=== PATIENT | female | born 1995 | race Caucasian/White ===

== ENCOUNTER 2023-11-14 05:18 | Emergency (ER) | payer MEDICAID ==
[~2023-11-14] VITALS: Ht 188 cm; Wt 74.6 kg
[2023-11-14 06:18] VITALS: BP 131/84; PULSE 96; RESP 16; TEMP 98; O2SAT 97
[2023-11-14] MEDS ORDERED: DICL1GEL59 EX (06:34)
[2023-11-14] MEDS ORDERED: MELO7.5T7 PO (06:34)
[2023-11-14] MEDS: KETOROLAC TROMETH 30 MG/ML 1ML VIAL IM ONE (06:42)
== END 2023-11-14 07:05 | disposition home or self-care (01) ==
LOC: ER 05:18
DX: M54.2 Cervicalgia (principal); F17.210 Nicotine dependence, cigarettes, uncomplicated; Z79.899 Other long term (current) drug therapy; X50.3XXA Overexertion from repetitive movements, initial encounter; Y93.89 Activity, other specified; Y92.89 Other specified places as the place of occurrence of the external cause; Y99.8 Other external cause status
CPT/HCPCS: 96372; 99283; J1885

== ENCOUNTER 2024-11-15 10:55 | Emergency (ER) | payer MEDICAID ==
[~2024-11-15] VITALS: Ht 188 cm; Wt 73.1 kg
[~2024-11-15 10:55] MED LIST: DICL1GEL59 EX; MELO7.5T7 PO
[2024-11-15 12:19] LABS: Basophils # (auto) 0.1 10 ^3/uL (0-0.2); Basophils % (auto) 0.7 % (0.0-2.0); Eosinophils # (auto) 0.1 10 ^3/uL (0-0.8); Hematocrit 40.2 % (36.0-46.0); Hemoglobin 13.9 g/dL (12.2-16.2); Lymphocytes # (auto) 1.8 10 ^3/uL (0.4-5.4); Lymphocytes % (auto) 20.1 % (10.0-50.0); Mean Corpuscular Hemoglobin 31.6 pg (28.0-32.0); Mean Corpuscular Hgb Conc. 34.4 g/dL (32.0-36.0); Mean Corpuscular Volume 91.8 fL (80.0-100.0); Monocytes # (auto) 0.6 10 ^3/uL (0-1.3); Monocytes % (auto) 7.3 % (0.0-12.0); Neutrophils # (auto) 6.3 10 ^3/uL (1.6-8.6); Neutrophils % (auto) 70.9 % (37.0-80.0); Nucleated Red Blood Cells % 0.1 %; Platelet Count (auto) 163 10^3/uL (140-450); Red Blood Cells 4.38 10^6/uL (4.0-5.20); White Blood Cell 8.8 10^3/uL (4.4-10.8)
[2024-11-15 12:28] LABS: Chloride 105 mmol/L (98-107); Potassium 3.9 mmol/L (3.5-5.1); Sodium 137 mmol/L (136-145)
[2024-11-15 12:29] LABS: Anion Gap 7 (5-15); Carbon Dioxide 25 mmol/L (20-31)
--- NOTE | 2024-11-15 12:29 | ED.PDOC ---
[facility] HPI Comments 29y F who presents to the ED for chief complaint of vaginal spotting. Pt states she is currently 3 months , LMP 08/25/24, , and states she has been having spotting since last night PM. Pt states she got into argument with daughter last night PM and states she lifted something heavy and states afterwards, while using restroom, she saw blood while wiping. Pt states she got worried and states she wanted to make sure "my baby has a heartbeat" and came to the ED today for further evaluation. Pt now in the ED, otherwise denies any associated cramping, nausea,vomiting, fever, cough, chills, dysuria, chest pain, or shortness of breath. Pt has noted stable vitals in the ED, with noted temp of 98.9F, heart rate of 95, RR 18, BP 133/80 and 02 sat of 98% on room air. Pt otherwise deneis any other symptoms at this time. Chief Complaint: Vaginal Bleed Time Seen by MD: 12:27 Reviewed Notes: Medications Allergies: Coded Allergies: NO KNOWN ALLERGIES (Unverified , 05/02/13) Home Meds Active Scripts Diclofenac Sodium (Topical) (Voltaren Arthritis Pain) 1 % Gel, 1 % EX QIDPRN for 60 Days, #60 GRAMS 0 Refills Prov:CATRACHITA CARTAGENA SOLAR PANEL INSTALLER 11/14/23 Meloxicam (Meloxicam) 7.5 Mg Tab, 1 TAB PO DAILYP PRN for 30 Days, #30 TAB 0 Refills Prov:CATRACHITA CARTAGENA SOLAR PANEL INSTALLER 11/14/23 Information Source: Patient Mode of Arrival: Ambulatory Brought in by: self Past Medical History PAST MEDICAL HISTORY: Denies Surgical History: Denies all surgeries NURSING STAFFING COORDINATOR History: Other (Current approximate 12 week , G2, P 1) Family History Family History: Reviewed,noncontributory to illness, Unknown Social History Smoker: Cigarettes, Greater Than 1 Pack/Day Alcohol: Occasionally Drugs: Denies Drug Use Lives In: Home Constitutional: denies: chills, diaphoresis, fatigue, fever, malaise, sweats, weakness, others EENTM: denies: blurred vision, double vision, ear bleeding, ear discharge, ear drainage, ear pain, ear ringing, eye pain, eye redness, hearing loss, mouth pain, mouth swelling, nasal discharge, nose bleeding, nose congestion, nose pain, photophobia, tearing, throat pain, throat swelling, voice changes, others Respiratory: denies: cough, hemoptysis, orthopnea, SOB at rest, shortness of breath, SOB with excertion, stridor, wheezing, others Cardiovascular: denies: chest pain, dizzy spells, diaphoresis, Dyspnea on exertion, edema, irregular heart beat, left arm pain, lightheadedness, pal pitations, PND, syncope, others Gastrointestinal: denies: abdomen distended, abdominal pain, blood streaked bowels, constipated, diarrhea, dysphagia, difficulty swallowing, hematemesis, melena, nausea, poor appetite, poor fluid intake, rectal bleeding, rectal pain, vomiting, others Genitourinary: reports: abnormal vagina bleeding; denies: burning, dyspareunia, dysuria, flank pain, frequency, hematuria, incontinence, pain, , vagina discharge, urgency, others Neurological: denies: dizziness, fainting, headache, left sided numbness, left sided weakness, numbness, paresthesia, pre-existing deficit, right sided numbness, right sided weakness, seizure, speech problems, tingling, tremors, weakness, others Musculoskeletal: denies: back pain, gout, joint pain, joint swelling, muscle pain, muscle stiffness, neck pain, others Integumetry: denies: bruises, change in color, change in hair/nails, dryness, laceration, lesions, lumps, rash, wounds, others Allergic/Immunocompromised: denies: Difficulty Healing, Frequent Infections, Hives, Itching, others Hematologic/Lymphatic: denies: anemia, blood clots, easy bleeding, easy bruising, swollen glands, others Endocrine: denies: excessive hunger, excessive sweating, excessive thirst, excessive urination, flushing, intolerance to cold, intolerance to heat, unexplained weight gain, unexplained weight loss, others Psychiatric: denies: anxiety, bipolar disorder, depression, hopeless, panic disorder, schizophrenia, sleepless, suicidal, others All Other Systems: Reviewed and Negative Physical Exam General Appearance: No Apparent Distress HEENT: Other (Pupils and face symmetric, moist mucous membranes.) Neck: Full Range of Motion, Normal Inspection Respiratory: Lungs Clear, No Accessory Muscle Use, No Respiratory Distress, Normal Breath Sounds Cardiovascular: No Edema, No JVD, Regular Rate/Rhythm Breast Exam: Deferred Gastrointestinal: Non Tender, Soft Genitalia: Deferred Pelvic: Deferred Rectal: Deferred Extremities: Normal inspection, Normal range of motion, No pedal edema Neurologic: Alert (Oriented x4), Other (Ambulatory without difficulty.) Cerebellar Function: NOT DONE Reflexes: NOT DONE Skin: Dry, Normal Color, Warm Lymphatic: NOT DONE Was a procedure done? Was a procedure done?: No Differential Diagnosis (NURSING STAFFING COORDINATOR) Vaginal Bleeding: - Incomplete, - Inevitable, - Missed, - Threatened, Abruptio Placentae, Blood Loss Anemia, Ectopic , Trauma, UTI, Other (subchorionic hemorrhage) Vaginal Discharge: X-Ray, Labs, Meds, VS Vital Signs Date Time Temp Pulse Resp B/P (MAP) Pulse Ox O2 Delivery O2 Flow Rate FiO2 11/15/24 11:29 98.9 95 18 133/80 (97) 98 98.9 Lab Test 11/15/24 11:58 11/15/24 11:24 Range/Units White Blood Count 8.8 4.4-10.8 10^3/uL Red Blood Count 4.38 4.0-5.20 10^6/uL Hemoglobin 13.9 12.2-16.2 g/dL Hematocrit 40.2 36.0-46.0 % Mean Corpuscular Volume 91.8 80.0-100.0 fL Mean Corpuscular Hemoglobin 31.6 28.0-32.0 pg Mean Corpuscular Hemoglobin Concent 34.4 32.0-36.0 g/dL Red Cell Distribution Width 14.0 11.8-14.3 % Platelet Count 163 140-450 10^3/uL Mean Platelet Volume 9.6 6.9-10.8 fL Neutrophils (%) (Auto) 70.9 37.0-80.0 % Lymphocytes (%) (Auto) 20.1 10.0-50.0 % Monocytes (%) (Auto) 7.3 0.0-12.0 % Eosinophils (%) (Auto) 1.0 0.0-7.0 % Basophils (%) (Auto) 0.7 0.0-2.0 % Neutrophils # (Auto) 6.3 1.6-8.6 10 ^3/uL Lymphocytes # (Auto) 1.8 0.4-5.4 10 ^3/uL Monocytes # (Auto) 0.6 0-1.3 10 ^3/uL Eosinophils # (Auto) 0.1 0-0.8 10 ^3/uL Basophils # (Auto) 0.1 0-0.2 10 ^3/uL Nucleated Red Blood Cells 0.1 % Sodium Level 137 136-145 mmol/L Potassium Level 3.9 3.5-5.1 mmol/L Chloride Level 105 98-107 mmol/L Carbon Dioxide Level 25 20-31 mmol/L Anion Gap 7 5-15 Blood Urea Nitrogen 10 9-23 mg/dL Creatinine 0.52 L 0.550-1.02 mg/dL Glomerular Filtration Rate Calc 127 >90 mL/min BUN/Creatinine Ratio 19.2 10.0-20.0 Serum Glucose 56 L 74-106 mg/dL Calcium Level 10.0 8.7-10.4 mg/dL Beta HCG, Quantitative 33082.3 H 1.5-4.2 mIU/mL Urine Color Colorless Yellow Urine Clarity Clear Clear Urine pH 6.5 5.0-9.0 Urine Specific [place] 1.009 1.001-1.035 Urine Protein Negative Negative Urine Ketones Negative Negative Urine Blood Negative Negative /uL Urine Nitrite Negative Negative Urine Bilirubin Negative Negative Urine Urobilinogen Normal Negative mg/dL Urine Leukocyte Esterase Negative Negative /uL Urine RBC 1 0 - 4 /hpf Urine Microscopic WBC 1 0-5 /HPF Urine Squamous Epithelial Cells Few <5 /hpf Urine Bacteria Few H None Seen /hpf Urine Glucose Normal Normal mg/dL [place] [id number] Ph: [phone] DIAGNOSTIC IMAGING Diagnostic Imaging Report : [id number] Signed PATIENT: FREDERICK MILLAN AACCT: [id number] UNIT: [id number] : 1995 LOC: ER ROOM / BED: / AGE / SEX: 29 / F ADM STATUS: REG ER SERVICE 1153 ORDERING PHYSICIAN: KVNG WINN MD PROCEDURE(s): OB4US - OB ULTRASOUND COMP LESS 14WKS REASON: 3 mo preg, vag bleed ORDER NUMBER(s): [id number], ACCESSION NUMBER(s): [id number] OB ULTRASOUND <14 WEEKS: HISTORY: 3 mo preg, vag bleed TECHNIQUE: Multiple real-time grayscale sonographic images of the pelvis with duplex Doppler color flow, spectral and M-mode analysis. TRANSDUCERS: Transabdominal FINDINGS: The uterus measures 14.1 x 10.6 x 7.8 cm. Bilateral ovaries are not well visualized. IUP single live fetus at 13 weeks 4 days average ultrasound age based on mean crown-rump length of 7.4 cm and gestational sac size of 6.3 cm heart rate detected at 164 beats per minute. Placenta previous visualized. The cervix appears closed. IMPRESSION: IUP single live fetus 13 weeks 4 days AUA corresponding to an DAMON of 05/19/2025. Placenta previous visualized. The cervix appears closed. Recommend correlation with OB exam. ATED BY: WANG MORRELL MD DICTATED DATE/TIME: 11/15/24 1253 SIGNED BY: WANG MORRELL MD SIGNED DATE/TIME: 11/15/24 1253 CC: X-Ray, Labs, Meds, VS Comment 29-year-old female with current approximate 12 week complaining of vaginal spotting Vitals unremarkable Exam unremarkable Rhythm strip independently interpreted by me: Sinus rhythm, rate 95, no ectopy. Ob ultrasound: IMPRESSION: IUP single live fetus 13 weeks 4 days AUA corresponding to an DAMON of 05/19/2025. Placenta previous visualized. The cervix appears closed. Recommend correlation with OB exam. CBC unremarkable, basic metabolic panel remarkable for glucose 56, serum quantitative hCG 32685.3, UA showed few squamous epithelial cells and few bacteria, likely representing a contaminated specimen. Patient treated with the following in the ED: P.o. juice and food was provided. On re-evaluation, patient is well-appearing with stable vitals. Repeat Accu- Chek was within normal limits. Patient now appears stable for discharge with close outpatient follow-up with her OBGYN. Patient advised regarding workup findings, my impression, treatment plan and follow-up recommendations. She expressed understanding and agreed. Time of 1ST Reevaluation: 13:00 Reevaluation 1ST: Unchanged Patient Education/Counseling: Diagnosis, Treatment Family Education/Counseling: No Family Present Additional Information -Reviewed patient's previous visit(s): - The following tests were ordered, and results were reviewed by me: CBC, OB US complete, Beta HCG, UA, BMP - Additional information was gathered from interviewing the following independent Historian: denies - I reviewed and agreed with the following test results read by other provider: radiologist - I discussed treatments and results with medical personnel and: patient Comprehensive systems review obtained and negative except for what is stated in the HPI. Departure 1 Departure Time of Disposition: 13:40 Impression: Primary Impression: Vaginal bleeding affecting early Additional Impressions: Placenta previa in first trimester Hypoglycemia Disposition: HOME / SELF CARE / HOMELESS Condition: Stable Additional Instructions: Your lab tests were unremarkable, except for a low blood sugar. We have corrected this in the ER. Your ultrasound showed a single live fetus with a gestational age of approximately 13 weeks and 4 days. The report is provided below. Follow-up with your OBGYN in 1-2 days for further evaluation of your bleeding. [place] [address] Ph: [phone] DIAGNOSTIC IMAGING Diagnostic Imaging Report : [id number] Signed PATIENT: FREDERICK MILLAN ACCT: [id number] UNIT: [id number] : 1995 LOC: ER ROOM / BED: / AGE / SEX: 29 / F ADM STATUS: REG ER SERVICE 1153 ORDERING PHYSICIAN: KVNG WINN MD PROCEDURE(s): OB4US - OB ULTRASOUND COMP LESS 14WKS REASON: 3 mo preg, vag bleed ORDER NUMBER(s): [id number], ACCESSION NUMBER(s): [id number] OB ULTRASOUND <14 WEEKS: HISTORY: 3 mo preg, vag bleed TECHNIQUE: Multiple real-time grayscale sonographic images of the pelvis with duplex Doppler color flow, spectral and M-mode analysis. TRANSDUCERS: Transabdominal FINDINGS: The uterus measures 14.1 x 10.6 x 7.8 cm. Bilateral ovaries are not well visualized. IUP single live fetus at 13 weeks 4 days average ultrasound age based on mean crown-rump length of 7.4 cm and gestational sac size of 6.3 cm heart rate detected at 164 beats per minute. Placenta previous visualized. The cervix appears closed. IMPRESSION: IUP single live fetus 13 weeks 4 days AUA corresponding to an DAMON of 05/19/2025. Placenta previous visualized. The cervix appears closed. Recommend correlation with OB exam. ATED BY: WANG MORRELL MD DICTATED DATE/TIME: 11/15/24 1253 Discharged With: Self Critical Care Note Critical Care Time?: No Stability Stability form required: No Heart Score Heart Score: Heart Score Response (Comments) Value History N/A 0 EKG N/A 0 Age N/A 0 Risk Factors N/A 0 Troponin N/A 0 Total 0 I personally scribed for KVNG WINN MD ([facility]) on 11/15/24 at 12:29. Electronically submitted by Rosa Malone ([facility] [email or web address] I personally scribed for KVNG WINN MD ([email or web address]) on 11/15/24 at 12:58. Electronically submitted by Rosa Malone ([email or web address]). KVNG WINN MD Nov 15, 2024 12:29
[2024-11-15 12:34] LABS: BUN/Creatinine Ratio 19.2 (10.0-20.0); Blood Urea Nitrogen 10 mg/dL (9-23); Glucose 56 mg/dL (74-106)
[2024-11-15 12:46] LABS: Urine Bacteria FEW /hpf (None Seen); Urine Blood Negative /uL (Negative); Urine Clarity Clear (Clear); Urine Color Colorless (Yellow); Urine Protein, UAD Negative (Negative); Urine Specific Gravity 1.009 (1.001-1.035); Urine Squamous Epithelial Cell FEW /hpf (<5); Urine Urobilinogen Normal (Negative); Urine WBC 1 /HPF (0-5); Urine pH 6.5 (5.0-9.0)
--- NOTE | 2024-11-15 12:55 | DVH ---
OB ULTRASOUND <14 WEEKS: HISTORY: 3 mo preg, vag bleed TECHNIQUE: Multiple real-time grayscale sonographic images of the pelvis with duplex Doppler color f low, spectral and M-mode analysis. TRANSDUCERS: Transabdominal FINDINGS: The uterus measures 14.1 x 10.6 x 7.8 cm. Bilateral ovaries are not well visualized. IUP single live fetus at 13 weeks 4 days average ultrasound age based on mean crown-rump length of 7. 4 cm and gestational sac size of 6.3 cm heart rate detected at 164 beats per minute. Placenta previous visualized. The cervix appears closed. IMPRESSION: IUP single live fetus 13 weeks 4 days AUA corresponding to an DAMON of 05/19/2025. Placenta previous visualized. The cervix appears closed. Recommend correlation with OB exam.
[2024-11-15 14:40] VITALS: PULSE 85; RESP 20; O2SAT 96
[2024-11-15 14:55] VITALS: BP 120/62; PULSE 85; RESP 14; TEMP 97.9; O2SAT 99
== END 2024-11-15 14:57 | disposition home or self-care (01) ==
LOC: ER 10:55
DX: O44.11 Complete placenta previa with hemorrhage, first trimester (principal); O99.281 Endocrine, nutritional and metabolic diseases complicating pregnancy, first trimester; E16.2 Hypoglycemia, unspecified; O99.331 Smoking (tobacco) complicating pregnancy, first trimester; R10.2 Pelvic and perineal pain; F17.210 Nicotine dependence, cigarettes, uncomplicated; Z79.899 Other long term (current) drug therapy; Z3A.13 13 weeks gestation of pregnancy
CPT/HCPCS: 36415; 76801; 80048; 81001; 84702; 85025